=== PATIENT | female | born 1990 | race Caucasian/White ===

== ENCOUNTER 2021-05-03 05:56 | Inpatient (IN) | payer OTHER, SELFPAY ==
[2021-05-03] VITALS (126 sets, daily range): BP systolic 82–153; BP diastolic 28–89; PULSE 65–114; RESP 16–20; TEMP 36.3–37.2; O2SAT 82–100; BMI 33.5
[2021-05-03] MEDS: LACTATED RINGERS 1,000 ML 125 ML IV CONT ×3 (06:32→18:20)
[2021-05-03] MEDS: AMPICILLIN 2 GM/NS 100 ML 2 GM/100 ML BAG IVPB (06:33)
--- NOTE | 2021-05-03 06:39 | LDADM ---
This patient, Corrine Nowak, was admitted to Labor/Delivery/Recovery 107 on 05/03/21 at 05:56. Plans for labor, pain management and were discussed with patient. Patient/family oriented to hospital policies and general routines including ID bracelet, bed and alarms, visiting hours, pain management, procedures, bathroom and other care routines, personal items, smoking policy, room service/diet and guest tray routines, security routines, and visiting hours. Patient/Family are encouraged to report perceived risks to care and to ask questions if they do not understand what they are told or what they should do. See OBIX for further documentation.
[2021-05-03 06:42] LABS: Basophils Percent Auto 0.5 % (0.2-1.2); Eosinophils Absolute Auto 0.2 K/mm3 (0-0.3); Eosinophils Percent Auto 2.1 % (0-4.4); Hematocrit 36.4 % (37.0-47.0); Hemoglobin 12.1 g/dL (12.0-15.0); Immature Granulocyte Absolute 0.12 K/mm3 (0.00-0.031); Immature Granulocyte Percent A 1.4 % (0-0.5); Lymphocytes Absolute Auto 1.51 K/mm3 (0.9-3.2); Lymphocytes Percent Auto 17.6 % (18.3-44.2); Mean Corpuscular HGB Conc 33.2 g/dl (32-36); Mean Corpuscular Volume 81.3 fl (80-100); Mean Platelet Volume 10.1 fl (7.4-10.4); Monocytes Absolute Auto 0.8 K/mm3 (0.1-0.6); Monocytes Percent Auto 8.8 % (2.6-8.5); Neutrophils Percent Auto 69.6 % (45.5-73.1); Platelet Count Result 278 k/mm3 (150-375); Red Blood Count 4.48 M/mm3 (4.2-5.4); Red Cell Distribution Width 14.3 % (11.5-14.5); White Blood Count 8.6 K/mm3 (4.5-10.0)
[2021-05-03] MEDS: OXYTOCIN 30 UNITS/NS 500 ML 30 UNITS/500 ML BAG IV CONT (06:50)
--- NOTE | 2021-05-03 07:11 | PM.IMHP ---
H&P: HPI History of Present Illness Date/Time: 05/03/21 07:11 Chief Complaint: induction of labor Narrative: Corrine is a at 39.0 for eIOL. Has h/o LGA babies, tobacco use, and anxiety and depression on lexapro. GBS pos. Review of Systems Review of Systems: All systems reviewed & are unremarkable except as noted in HPI and below PMFSH Family History Family History Other Adopted Social History Social History Smoking packs per day: 0.5 Smoking cigarettes per day: 10.0 Years smoked: 7 Smoking pack-years: 3.50 Smoking status: Current every day smoker Tobacco type: cigarettes Substance use: never Spiritual care concerns: No Meds Home Medications and Allergies Home Medications Medication Instructions Recorded Confirmed Type escitalopram oxalate [Lexapro] 10 mg PO DAILY 04/12/21 04/12/21 History prenat.vits,abel,[id number] 1 tablet PO DAILY 04/12/21 04/12/21 History [ #2] Vital Signs Vital Signs - 24 hr 05/03/21 06:21 05/03/21 06:52 05/03/21 07:01 Pulse Rate 89 72 71 Blood Pressure 121/62 123/61 125/73 Exam Const: General: no acute distress Resp: Effort & Inspection: normal respiratory effort Auscultation: clear to auscultation bilaterally Cardio: Rate: regular rate Rhythm: regular rhythm GI: GI Palp: Yes Soft to palpation Extrem: General: normal to inspection H&P: Results Labs Labs: Short CBC 05/03/21 Range/Units 06:27 WBC 8.6 (4.5-10.0) K/mm3 Hgb 12.1 (12.0-15.0) g/dL Hct 36.4 L (37.0-47.0) % Plt Count 278 (150-375) k/mm3 Assessment and Plan Additional Plan Here for induction of labor-elective GBS pos FHT category 1
[2021-05-03] MEDS: AMPICILLIN 1 GM/NS 50 ML 1 GM/50 ML BAG IVPB ×3 (10:44→18:16)
[2021-05-03] MEDS: CALCIUM CARBONATE (TUMS) 500 MG (200 MG ELEMENTAL) PO (14:26)
[2021-05-03] MEDS: miSOPROStol 200 MCG TABLET 800 MCG (21:17)
--- NOTE | 2021-05-03 21:24 | PM.OBPRVD ---
OB - Delivery Note Procedure Delivery date: 05/03/21 Procedure: events: Labor Induction Intrapartal events: Deceleration Induction method: AROM and per pitocin protocol Delivery monitor: external FHT and internal uterine Route of delivery: Laceration Description: Perineal - 1st Degree Delivery repair: vicryl Specimen: No Quantitative Blood Loss (ml): 400 Anesthesia type: Epidural Disposition: floor Narrative: With adequate expulsive efforts by the mother, the baby's head was delivered OA. The baby's anterior shoulder was delivered under the pubic symphysis without difficulty. The posterior shoulder and the rest of the baby delivered without difficulty. The was placed on the mothers chest and suctioned and stimulated. The cord was clamped and cut after 30 seconds. Mother and baby both stable. Mild atony was encountered following delivery of the placenta. Pitocin and cytotec were administered and clots were evacuated from the uterus. Atony resolved. [place] Date of : 05/03/21 Time of : 21:03 Weeks of gestation at delivery: 39 gender: Male Weight (pounds): 7 Weight (ounces): 5 presentation: vertex Placenta delivery description: Spontaneous cord vessel description: 3 Vessels, Nuchal Cord, Clamped/Cut and Delayed Cord Clamping score one minute: 8 score five minutes: 9
[2021-05-03] MEDS: OXYTOCIN 30 UNITS/NS 500 ML 30 UNITS/500 ML BAG 125 UNITS IV CONT (21:30)
[2021-05-03] MEDS: IBUPROFEN 600 MG TABLET PO (23:29)
[2021-05-03] MEDS: WITCH HAZEL 40 PADS 1 PAD TOPICAL (23:30)
[2021-05-03] MEDS: BENZOCAINE 20% AER SPR (*SP) 56 GM CAN 1 SPRAY TOPICAL (23:30)
[2021-05-04 00:20] VITALS: BP 103/62; PULSE 86; RESP 18; TEMP 36.4; O2SAT 97
[2021-05-04] MEDS: ACETAMINOPHEN 325 MG TABLET 650 MG PO (03:11)
[2021-05-04 03:50] VITALS: BP 110/64; PULSE 81; RESP 18; TEMP 36.6; O2SAT 99
[2021-05-04 06:08] LABS: Hematocrit 36.2 % (37.0-47.0); Hemoglobin 11.6 g/dL (12.0-15.0)
[2021-05-04 07:30] VITALS: BP 115/58; PULSE 73; RESP 12; TEMP 35.9; O2SAT 98
[2021-05-04] MEDS: IBUPROFEN 600 MG TABLET PO ×2 (07:43→17:37)
[2021-05-04] MEDS: DOCUSATE SODIUM 100 MG CAPSULE PO ×2 (07:44→17:37)
[2021-05-04] MEDS: BENZOCAINE 20% AER SPR (*SP) 56 GM CAN 1 SPRAY TOPICAL (07:44)
[2021-05-04] MEDS: MULTIVIT/MIN/PREN/FOL AC/IRON TABLET 1 TAB PO (07:44)
[2021-05-04] MEDS: WITCH HAZEL 40 PADS 1 PAD TOPICAL (07:44)
--- NOTE | 2021-05-04 12:11 | PM.OBPNVD ---
OB - PN: Subj Subjective Date/time seen: 05/04/21 12:11 Patient comments: no complaints and pain well controlled baby status: doing well [place] feeding status: exclusively breast feeding OB - PN: Obj Data Labs CBC & Chem 7: 05/04/21 05:27 Labs: Laboratory Results - last 24 hr 05/04/21 05:27 Hgb 11.6 L Hct 36.2 L OB - PN A/P Assessment and Plan (1) , delivered: Code(s): O80 - Encounter for full-term uncomplicated delivery Status: Acute Plan day: 1 Plan: routine care Time Spent With Patient Time: Total time spent is greater than 50% in coordination of care (as documented) at patient's floor/unit and/or counseling patient: Time with patient: less than 15 minutes Exam Narrative: NAD abdomen soft, nontender, fundus firm below the umbilicus Extremities nontender, 1+ edema
--- NOTE | 2021-05-04 14:22 | WPDANLDPN2 ---
Anes-Prog Note L&D Date/Time: 05/04/21 14:22 Comfortable throughout: labor and delivery Neuraxial method: epidural Epidural/Spinal procedure site: clean & non-tender Neuro status: Neuro function grossly intact. Cardiovascular status: normal Respiratory status: normal Airway patency: baseline Mental status: baseline Post-Op hydration status: normal Vital Signs: Last Vital Signs Temp 35.9 C L 05/04/21 07:30 Pulse 73 05/04/21 07:30 Resp 12 05/04/21 07:30 BP 115/58 L 05/04/21 07:30 Pulse Ox 98 05/04/21 07:30 Pain score (VAS): 0 I/O: Intake & Output 05/03/21 05/04/21 05/04/21 23:59 07:59 15:59 Intake Total 1550 Output Total 65 Balance 1550 -65 Post-procedural complaints: none Patient feedback: Patient satisfied with anesthetic care.
[2021-05-04 16:00] VITALS: BP 111/57; PULSE 81; RESP 16; TEMP 36.6; O2SAT 98
[2021-05-04 21:37] VITALS: BP 123/60; PULSE 84; RESP 16; TEMP 36.8; O2SAT 98
--- NOTE | 2021-05-05 07:00 | PC.NURSE ---
PT introductions made and plan of care discussed per post , pain management, breast feeding and supplementing, daily care activities, and pending discharge to home. PT verbalized understanding after receiving discharge instructions per one to one, mom baby care guide and demonstration. PT and spouse both recipients of such instructions and no barriers to learning identified at this time.
--- NOTE | 2021-05-05 07:30 | PC.NURSE ---
PT introductions made and plan of care discussed per post , pain management, breast feeding, supplementing. daily care activities and pending discharge to home. PT received such instructions this shift per one to one discussion, mom baby care guide and demonstrations. PT sole recipient of such instructions and no barriers of learning identified at this time.. PT verbalized understanding.
[2021-05-05 09:30] VITALS: BP 110/61; PULSE 86; RESP 18; TEMP 37.1; O2SAT 100
[2021-05-05] MEDS: ACETAMINOPHEN 325 MG TABLET 650 MG PO (09:36)
[2021-05-05] MEDS: DOCUSATE SODIUM 100 MG CAPSULE PO (09:37)
[2021-05-05] MEDS: IBUPROFEN 600 MG TABLET PO (09:37)
[2021-05-05] MEDS: MULTIVIT/MIN/PREN/FOL AC/IRON TABLET 1 TAB PO (09:37)
[2021-05-05] MEDS: ESCITALOPRAM OXALATE 10 MG TABLET PO (09:39)
--- NOTE | 2021-05-05 10:36 | P.PNOB_ITS ---
OB - PN: Subj Subjective Date/time seen: 05/05/21 10:36 Patient comments: no complaints baby status: doing well [place] feeding status: exclusively breast feeding OB - PN: Obj Data Labs CBC & Chem 7: 05/04/21 05:27 OB - PN A/P Assessment and Plan (1) , delivered: Code(s): O80 - Encounter for full-term uncomplicated delivery Status: Acute Plan day: 2 Plan: routine care and discharge home Time Spent With Patient Time: Total time spent is greater than 50% in coordination of care (as documented) at patient's floor/unit and/or counseling patient: Time with patient: less than 15 minutes Exam Narrative: NAD abdomen soft, nontender, fundus firm below the umbilicus Extremities nontender, 1+ edema
--- NOTE | 2021-05-05 10:38 | PM.DS ---
DS: Admitting Diagnosis Discharge Date 05/05/21 Admitting Diagnosis term IUP DS: Discharge Diagnosis Discharge Diagnosis (1) , delivered: Code(s): O80 - Encounter for full-term uncomplicated delivery Status: Acute DS: Summary Hospital Course Hospital Course: Corrine had an uncomplicated induction, vaginal delivery, and course. Time Spent with Patient Time attestation: Total time spent providing and/or coordinating discharge services: Exam Narrative: NAD abdomen soft, appropriately tender Ext non tender, 1+ edema Discharge Plan Discharge Attending physician on discharge: Deepika Morin Discharging Clinician: Deepika Morin Anticipated Discharge Date/Time: 05/05/21 10:38 Patient Disposition: Home, Self-Care Activity: pelvic rest Diet: regular Discharge Instructions: Education: Mom and Baby Guide Given to: Mother Follow-Up: Call your delivering provider's office for an appointment to be seen in: 4 Weeks Mom and baby should come to the [facility] for the follow-up appointment. Appointment Date/Time: May 08, 2021 at 10:00 am What to expect at your follow-up visit: Blood Pressure Check Call [phone] if you are unable to keep your appointment time. BREAST CARE: * Wear a snug supportive bra. * For engorgement discomfort: Breast Feeding: * Apply warm moist washcloths * Express milk as needed to relieve engorgement * Wear loose clothing Bottle Feeding: * May apply ice packs * For sore nipples: * Identify correct latch-on * Apply warm moist washcloths before and after nursing * Air dry nipples after nursing * May apply Lansinoh cream to nipples PERINEAL CARE: * Until bleeding stops, use your myron bottle after urinating * Change your pad frequently throughout the day * You may take sitz baths several times a day (fill your bathtub with warm water and soak for 20 minutes.) Do NOT bathe in the water * No tub baths until seen by your physician - You may shower ACTIVITY: * Rest as much as possible. * Do not exercise or lift anything heavier than your baby (such as laundry or other children.) * Avoid stairs or driving as much as possible. * Do not put anything into the vagina. No douching, tampons, or sexual activity until seen by physician. NOTIFY PHYSICIAN IF YOU HAVE ANY QUESTIONS OR IF ANY OF THE FOLLOWING SYMPTOMS OCCUR: * If your perineum becomes red, swollen, or more painful than what you have experienced in the hospital. * If your vaginal bleeding becomes foul smelling. * If your vaginal bleeding becomes more heavy than a period or if your bleeding changes from pink to bright red. However, you may pass an occasional walnut-sized clot once or twice for the first week . * If you experience a sharp, shooting pain in you calves. * If you discover a hard, reddened area on your breast or if you experience flu-like symptoms * If you have a fever of 100.4 or greater DIET: * Eat regular, well-balanced meals. * Drink plenty of fluids daily. If , drink to thirst. Patient Instructions: Antibiotic Form, How to Stop Smoking (DC) Stand Alone Forms: General Discharge Information Follow-up/Referrals: Deepika Morin MD [Physician] - 4 Weeks Discharge Medications: Continued #2 Tablet 1 tablet PO HS RF: 0 escitalopram oxalate [Lexapro] 10 mg Tablet 10 mg PO DAILY RF: 0 Date of admission: 05/03/21 05:56 Primary Care Provider: PHYSICIAN,[employer]ER Admitting Provider: Deepika Morin Attending physician on admission: Deepika Morin Condition: Stable
--- NOTE | 2021-05-05 11:50 | PC.NURSE ---
Pt received discharge instructions per protocol and verbalized understanding of such care
--- NOTE | 2021-05-05 12:37 | PC.NURSE ---
PT discharged to home ambulatory accompanied by both spouse and infant and walked to waiting car. Follow up appts confirmed
[2021-05-06 13:25] LABS: Rapid Plasma Reagin Non-Reactive (NonReactive)
[2021-05-08 09:54] VITALS: BP 122/68; PULSE 74; RESP 20; TEMP 37.1; O2SAT 98
== END 2021-05-05 12:37 | disposition home or self-care (01) | DRG 560 ==
LOC: ANHLDR 05:59 → ANHOB2 23:49
PROVIDERS: Admitting Provider Obstetrics & Gynecology; Visit Provider Obstetrics & Gynecology
DX: O99.824 Streptococcus B carrier state complicating childbirth (principal); Z37.0 Single live birth; Z3A.39 39 weeks gestation of pregnancy; O36.8330 Maternal care for abnormalities of the fetal heart rate or rhythm, third trimester, not applicable or unspecified; O70.0 First degree perineal laceration during delivery; O72.1 Other immediate postpartum hemorrhage; O69.81X0 Labor and delivery complicated by cord around neck, without compression, not applicable or unspecified; O99.344 Other mental disorders complicating childbirth; F41.8 Other specified anxiety disorders
CPT/HCPCS: 36415; 85014; 85018; 85025; 86592; 86850; 86900; 86901; A9270; J0290; J2590; J7120

== ENCOUNTER 2021-05-10 11:59 | Outpatient (RCR) | payer OTHER, SELFPAY ==
--- NOTE | 2021-05-10 12:00 | PC.NURSE ---
IN 1100 OUT 1155 HISTORY: Pt. delivered at [facility] at 39 weeks. had no complications after delivery. Mother had no complications after delivery. Mother and discharged, successfully and supplement at times by choice. is now 7 days old. appears to be well cared for. will be seen by ICP at 2 weeks of life. Mother reports: Currently at 6 wets per day and 2-3 yellow seedy stools per day. weight: 7#5 Discharge weight: 6#14 Last Weight: unsure of hospital follow up weight Mother states infant is not feeding or latching consistently. Mother is engorged and has difficulties latching and maintaining latch. Mother wakes to feed every 2 hours, she will supplement after breastfeedings if she feels infant has not nursed long enough. will freq nurse up to 15-20 minutes and appears satisfied. Mother has pain to both nipples more to left than right. Left nipple is red and excoriated. Mother is tearful and concerning infant is not getting enough to eat and concerned she will loose her milk supply. Mother will frequently pump 55-60 mls after feedings. Mother wishes: To exclusively breastfeed. OBSERVATION: Pre feeding weight: 3279 Post feeding weight: 3322 43 in 15 minutes of nursing Tongue is able to move tongue freely past gum ridge, both lips flange easily. Mother has everted nipples with redness, blister, and excoriation to left, slight redness to right. Mother is very full and engorged. Suggested mother self express before latching to soften for deeper latch and to assist with maintaining deep latch. Demonstrated self expression. Advised to pump for 1-2 minutes if not self expressing first. Mother puts infant to breast in cradle positioning, allowing infant to self latch shallow to nipple with chin to chest. Reviewed positioning/alignment in cross cradle, holding breast in ?U? hold and guided asymmetrical latch on. Reviewed rational for each. Infant able to latch correctly within a few attempts. Infant nursed eagerly with steady draws and frequent swallowing noted, some pausing noted. Reviewed signs of a correct latch, effective nursing and suck swallow ratio. Suggested mother stimulate while feeding to increase stimulation for milk supply, for increased intake and to assist with maintaining deep latch. Infant would slip to shallow latch causing tenderness. Demonstrated how to adjust latch more deeply while feeding as needed. Mother reports she can feel the difference in latch with less tenderness. Advised mother to hold breast during entire feeding to assist infant with maintaining deep latch for the next several days. Mother reports this is 's best feeding since discharge. Reenforced the importance of a deep latch for increased milk transfer and her comfort. Nipple care reviewed of lanolin after feedings, warm compresses as needed, gel pads provided and reviewed care and cleaning. Reviewed infant pre and post, advising is able to transfer adequate amounts of breastmilk supplementation is not needed. If infant feeds on one breast offer second breast before supplementing. Advised to allow infant to sleep 3-3.5 hours between feedings and waking for most feedings by 3 hours. Reviewed infant output and infant needs to maintain current output of 6 wets and 1-2 stools per day or call her PCP for . Discussed to decrease pumping to comfort pumping only,if is at breast with adequate output and satisfied. PLAN: Mother will follow above feeding plan to keep infant at breast with less supplementation. Mother will call with further questions or concerns. I
== END 2021-06-13 12:40 | disposition home or self-care (01) ==
LOC: ANHOBOP 11:59
PROVIDERS: Visit Provider Family Medicine
DX: O92.13 Cracked nipple associated with lactation (principal)
CPT/HCPCS: 99212; G0463

== ENCOUNTER 2021-08-08 01:10 | Emergency (ER) | payer OTHER, SELFPAY ==
[2021-08-08 01:14] VITALS: BP 117/61; PULSE 77; RESP 20; TEMP 36.6; O2SAT 97
--- NOTE | 2021-08-08 01:28 | ED.ABDPAIN ---
HPI - Abdominal Pain General Chief Complaint: Abdominal Pain Stated Complaint: STOMACH PAIN Time Seen by Provider: 08/08/21 01:28 Source: patient and RN notes reviewed Mode of arrival: ambulatory Limitations: no limitations History of Present Illness MD elicited complaint: abdominal pain Pertinent past history: none Onset (ago): hour(s) (1.5) Pain Consistency: constant Location: RUQ Severity: severe Quality: stabbing and sharp Radiation: other (right shoulder) Migration to: no migration Exacerbating factors: nothing Relieving factors: nothing Associated symptoms: denies other symptoms Related Data Home Medications Medication Instructions Recorded Confirmed escitalopram oxalate [Lexapro] 10 mg PO DAILY 04/12/21 08/08/21 Allergies Allergy/AdvReac Type Severity Reaction Status Date / Time No Known Allergies Allergy Verified 08/08/21 01:13 Review of Systems Review of Systems: All systems reviewed & are unremarkable except as noted in HPI and below PMFSH Past Medical History Medical History (Updated 08/08/21 @ 01:39 by Rex Smiley MD) Depression Surgical History Surgical History (Updated 08/08/21 @ 01:36 by Rex Smiley MD) No pertinent past surgical history Family History Family History Other Adopted Social History Social History Smoking packs per day: 0.5 Smoking cigarettes per day: 10.0 Years smoked: 7 Smoking pack-years: 3.50 Smoking status: Current every day smoker Tobacco type: cigarettes Substance use: never Spiritual care concerns: No Exam Const: General: healthy appearing, no acute distress and alert Nutritional Appearance: well nourished Orientation/consciousness: patient oriented x3 Other: nurse in room during exam HENMT: Head: normal to inspection Ears: external ears normal Eyes: Conjunctivae: conjunctivae normal Pupils: Equal, round and reactive pupils present EOM: EOMs intact bilaterally Neck: Neck: normal visual inspection Resp: Effort & Inspection: normal respiratory effort Auscultation: clear to auscultation bilaterally Cardio: Rate: regular rate Rhythm: regular rhythm GI: GI Palp: Yes Soft to palpation, Yes Tenderness to palpation present (GI) ( right upper quadrant with mildly positive Amezcua sign), Yes Guarding due to palpation present (GI) ( mild) and No Rebound tenderness present Auscultation: normal bowel sounds Back/Spine/Pelvis: Back: no CVA tenderness Cervical Spine: cervical ROM normal Thoracic/Lumbar Spine: thoraco-lumbar ROM normal Skin: General skin exam: normal color Rashes: no rashes Neuro: General: patient oriented x3, moves all extremities, no meningeal signs, no focal motor deficits and CN's II-XI intact bilaterally Speech: normal speech Gait exam (Neuro): Normal gait present Extrem: General: normal to inspection and no clubbing, cyanosis or edema Psych: Appearance: grossly normal and well kempt Mental Status: mental status grossly normal Affect: normal affect Attitude: cooperative Thought content: Yes Normal thought content present Course Course Emergency Course: patient called the nurse down and told him that she burped and passed gas and all of her pain went away. She does not want have any further workup. Vital Signs Vital signs: Vital Signs Temperature 36.6 C 08/08/21 01:14 Pulse Rate 77 08/08/21 01:14 Respiratory Rate 20 08/08/21 01:14 Blood Pressure 117/61 08/08/21 01:14 Pulse Oximetry 97 08/08/21 01:14 Temperature 36.9 C 08/08/21 01:53 Pulse Rate 87 08/08/21 01:53 Respiratory Rate 18 08/08/21 01:53 Blood Pressure 112/64 08/08/21 01:53 Pulse Oximetry 98 08/08/21 01:53 Discharge Plan Discharge Clinical Impression: Right upper quadrant abdominal pain Patient Disposition: Home, Self-Care Condition: Stable Instructions: Biliary Colic (ED
--- NOTE | 2021-08-08 01:28 | PC.NURSE ---
pt reports, I kind of feel stupid but I just farted a lot and belched and now I feel fine. the pain is gone and i can move. MD Smiley updated.
[2021-08-08 01:53] VITALS: BP 112/64; PULSE 87; RESP 18; TEMP 36.9; O2SAT 98
== END 2021-08-08 01:55 | disposition home or self-care (01) ==
PROVIDERS: Emergency Provider Emergency Medicine
DX: R10.11 Right upper quadrant pain (principal)
CPT/HCPCS: 99281

== ENCOUNTER 2021-09-18 08:22 | Outpatient (CLI) | payer OTHER, SELFPAY ==
--- NOTE | ~2021-09-18 | US_ITS ---
EXAMINATION: US abdomen complete EXAM DATE: 09/18/2021 08:53 INDICATION: Abdominal pain . TECHNIQUE: Multiple grayscale and Doppler images of the complete abdomen were obtained (by a technolo gist who performed the scan) and subsequently reviewed. There is no prior study for comparison. FINDINGS: The abdominal aorta is normal in caliber. Visualized portion IVC is patent. The pancreatic head a nd body are normal in appearance. The pancreatic tail is not visualized. The liver has normal echogenicity and contour. There are no focal liver lesions identified. There is no evidence of intrahepatic biliary duct dilation. Portal venous flow was seen in the hepatopedal , normal direction and has normal Doppler waveform. Common bile duct measures 3 mm, which is normal. The gallbladder wall is normal in thickness, with ex pected amount of distention. No sonographic evidence of pericholecystic fluid. Several tiny gallbla dder polyps, not clinically significant. No cholelithiasis suspected. Technologist performing exam r eports patient did not demonstrate sonographic Amezcua's sign. Please note that this sign is less rel iable in patients who have received pain medication. Right kidney: There is normal contour and echogenicity. It measures 10.5 x 4.1 x 5.0 centimeters. There are no focal renal lesions identified. There is no hydronephrosis. Left kidney: There is normal contour and echogenicity. It measures 11.6 x 5.5 x 4.8 centimeters. T here are no focal renal lesions identified. There is no hydronephrosis. The spleen measures 11.3 centimeters and is morphologically normal. IMPRESSION: Unremarkable complete abdominal ultrasound exam. Reviewed, dictated and finalized at location A.
== END 2021-09-18 08:23 | disposition home or self-care (01) ==
LOC: CHSIMG 08:23
PROVIDERS: PCP Family Medicine; Visit Provider Family Medicine
DX: R10.9 Unspecified abdominal pain (principal)
CPT/HCPCS: 76700

== ENCOUNTER 2023-06-18 14:07 | Emergency (ER) | payer OTHER, SELFPAY ==
[2023-06-18 14:08] VITALS: BP 130/81; PULSE 126; RESP 24; TEMP 36.6; O2SAT 98
--- NOTE | 2023-06-18 14:10 | ECG_ITS ---
Measurements Intervals [place] Rate: 97 P: 54 [place]: 170 QRS: 83 QRSD: 99 T: 34 QT: 349 QTc: 444 Interpretive Statements SINUS RHYTHM INCOMPLETE RIGHT BUNDLE BRANCH BLOCK MINIMAL Q WAVES- INF/LAT LEADS BORDERLINE ECG NO PREVIOUS ECG AVAILABLE FOR COMPARISON Electronically Signed On 06-18-2023 14:49:31 [place] [employer] ATTENDANT by Ari Figueroa D.O.
[2023-06-18 14:33] LABS: Basophils Absolute Auto 0.06 K/mm3 (0.00-0.10); Basophils Percent Auto 0.6 % (0.0-1.0); Eosinophils Absolute Auto 0.09 K/mm3 (0.02-0.50); Eosinophils Percent Auto 0.9 % (1.0-6.0); Hematocrit 45.2 % (35.0-49.0); Hemoglobin 14.6 g/dL (12.0-15.0); Immature Granulocyte Absolute 0.05 K/mm3 (0.00-0.00); Immature Granulocyte Percent A 0.5 % (0.0-0.0); Lymphocytes Absolute Auto 2.26 K/mm3 (1.10-4.50); Lymphocytes Percent Auto 21.6 % (18.0-42.0); Mean Corpuscular HGB Conc 32.3 g/dL (32.0-36.0); Mean Corpuscular Hemoglobin 26.1 pg (27.0-31.0); Mean Corpuscular Volume 80.9 fL (78.0-102.0); Mean Platelet Volume 9.9 fl (9.2-11.8); Monocytes Absolute Auto 0.71 K/mm3 (0.10-0.90); Monocytes Percent Auto 6.8 % (2.0-11.0); Neutrophils Absolute Auto 7.3 K/mm3 (1.7-7.2); Neutrophils Percent Auto 69.6 % (50.0-70.0); Platelet Count Result 309 K/mm3 (150-420); Red Blood Count 5.59 M/mm3 (4.20-5.40); Red Cell Distribution Width 14.1 % (11.6-14.4); White Blood Count 10.5 K/mm3 (4.8-10.8)
[2023-06-18] MEDS: ALPRAZolam (*CRX) 0.5 MG TABLET PO (14:34)
[2023-06-18 14:52] LABS: Alanine Aminotransferase 43 U/L (14-59); Albumin Level 4.3 g/dL (3.4-5.0); Alkaline Phosphatase 58 U/L (46-116); Anion Gap 16 mmol/L (8-16); Aspartate Amino Transferase 23 U/L (15-37); Bilirubin,Total 0.4 mg/dL (0.00-1.00); Blood Urea Nitrogen 9 mg/dL (7-18); Calcium 8.9 mg/dL (8.5-10.1); Carbon Dioxide 22 mmol/L (21-32); Chloride 100 mmol/L (98-108); Estimated CRCL calculation 82 ml/min; Estimated Glomerular Filt Rate > 60; Glucose 93 mg/dL (70-99); Osmolality Calculated 284 mOsm/kg (285-295); Potassium 3.8 mmol/L (3.5-5.1); Sodium 138 mmol/L (136-145); Total Protein 7.8 g/dL (6.4-8.2)
--- NOTE | 2023-06-18 14:52 | PC.NURSE ---
1434 pt resting per cot, calmly. not crying at this time.
[2023-06-18 15:16] LABS: D Dimer 0.19 mg/L (0.19-0.50)
--- NOTE | 2023-06-18 15:19 | ED.ANXIETY ---
HPI - Anxiety General Chief Complaint: Anxiety Stated Complaint: panic attack Time Seen by Provider: 06/18/23 14:09 Source: patient and family Mode of arrival: ambulatory Limitations: no limitations History of Present Illness HPI narrative: this is a 33-year-old female with a history anxiety depression and panic attacks presents with some severe anxiety that started earlier today called her therapist that did not answer, patient did take Ativan apparently it did not patient appears anxious emotional crying with no shortness of breath no chest pain no nausea vomiting no fever chills no abdominal pain. complaint: anxiety Onset (ago): hour(s) Severity: moderate Quality: constant Place: home History of similar episodes: Yes Provoking factors: emotional stress Exacerbating factors: thinking about event Associated symptoms: denies other symptoms Related Data Home Medications Medication Instructions Recorded Confirmed escitalopram oxalate 10 mg tablet 10 mg PO DAILY 04/12/21 08/08/21 (Lexapro) Allergies Allergy/AdvReac Type Severity Reaction Status Date / Time No Known Allergies Allergy Verified 08/08/21 01:13 Review of Systems Review of Systems: All systems reviewed & are unremarkable except as noted in HPI and below PMFSH Past Medical History Medical History Depression Surgical History Surgical History No pertinent past surgical history Family History Family History Other Adopted Social History Social History Smoking packs per day: 0.5 Smoking cigarettes per day: 10.0 Years smoked: 7 Smoking pack-years: 3.50 Smoking status: Current every day smoker Tobacco type: cigarettes Substance use: never Spiritual care concerns: No Exam Const: General: healthy appearing and no acute distress Nutritional Appearance: well nourished Orientation/consciousness: patient oriented x3 Limitations: no limitations HENMT: Head: normal to inspection Neck: Neck: normal visual inspection, no lymphadenopathy and no meningeal signs Chest: Chest palpation & inspection: normal inspection of the chest Resp: Effort & Inspection: normal respiratory effort Auscultation: clear to auscultation bilaterally Cardio: Rate: regular rate Rhythm: regular rhythm GI: GI Palp: Yes Soft to palpation Auscultation: normal bowel sounds : General: Yes bladder normal to palpation Skin: General skin exam: normal color Neuro: General: patient oriented x3 Extrem: General: normal to inspection and no clubbing, cyanosis or edema Psych: Affect: Anxious affect present Course Course Emergency Course: Patient received 0.5mg PO Xanax is resting comfortably currently sleeping and symptoms have improved considerably, EKG and blood work including D-dimer were all within normal limits. Vital Signs Vital signs: Vital Signs Temperature 36.6 C 06/18/23 14:08 Pulse Rate 126 H 06/18/23 14:08 Respiratory Rate 24 H 06/18/23 14:08 Blood Pressure 130/81 06/18/23 14:08 Pulse Oximetry 98 06/18/23 14:08 Oxygen Delivery Room Air 06/18/23 14:08 Temperature 36.6 C 06/18/23 14:08 Pulse Rate 126 H 06/18/23 14:08 Respiratory Rate 24 H 06/18/23 14:08 Blood Pressure 130/81 06/18/23 14:08 Pulse Oximetry 98 06/18/23 14:08 Oxygen Delivery Room Air 06/18/23 14:08 MDM - Anxiety Lab Data 06/18/23 14:25 06/18/23 14:25 Labs: Lab Results 06/18/23 Range/Units 14:25 WBC 10.5 (4.8-10.8) K/mm3 RBC 5.59 H (4.20-5.40) M/mm3 Hgb 14.6 (12.0-15.0) g/dL Hct 45.2 (35.0-49.0) % MCV 80.9 (78.0-102.0) fL MCH 26.1 L (27.0-31.0) pg MCHC 32.3 (32.0-36.0) g/dL RDW 14.1 (11.6-14.4) % Plt Count 309 (150-420) K/mm3 M
== END 2023-06-18 15:40 | disposition home or self-care (01) ==
PROVIDERS: Emergency Provider Emergency Medicine; PCP Family Medicine
DX: F41.0 Panic disorder [episodic paroxysmal anxiety] (principal); F17.210 Nicotine dependence, cigarettes, uncomplicated
CPT/HCPCS: 36415; 80053; 85025; 85380; 93005; 99283; A9270